=== PATIENT | male | born 1955 | race Hispanic/Latino ===

== ENCOUNTER 2024-09-11 23:08 | Emergency (ER) | payer OTHER, MEDICARE ==
[~2024-09-11] VITALS: Ht 175.3 cm; Wt 104.3 kg
[2024-09-12 01:15] VITALS: TEMP 97
[2024-09-12] MEDS ORDERED: ATOR80TA59 PO (01:17)
[2024-09-12] MEDS ORDERED: CYANCRY6 XX (01:21)
[2024-09-12] MEDS ORDERED: VITA200012 PO (01:21)
[2024-09-12] MEDS ORDERED: JARD1TAB3 PO (01:21)
[2024-09-12] MEDS ORDERED: HYDR-4514 PO (01:23)
[2024-09-12] MEDS ORDERED: METF-877 PO (01:23)
[2024-09-12] MEDS ORDERED: NARC1SPR (01:23)
[2024-09-12] MEDS ORDERED: LISI20TA33 PO (01:23)
[2024-09-12] MEDS ORDERED: FERR32TA PO (01:23)
[2024-09-12 01:42] VITALS: BP 132/59; O2SAT 96
== END 2024-09-12 01:45 | disposition short-term general hospital (02) ==
LOC: M ED 23:08
DX: S00.03XA Contusion of scalp, initial encounter (principal); I67.82 Cerebral ischemia; W01.198A Fall on same level from slipping, tripping and stumbling with subsequent striking against other object, initial encounter; I10 Essential (primary) hypertension; N40.0 Benign prostatic hyperplasia without lower urinary tract symptoms; M25.78 Osteophyte, vertebrae; M47.9 Spondylosis, unspecified; E11.9 Type 2 diabetes mellitus without complications; Z79.02 Long term (current) use of antithrombotics/antiplatelets; Z79.811 Long term (current) use of aromatase inhibitors; Z79.899 Other long term (current) drug therapy; Y92.009 Unspecified place in unspecified non-institutional (private) residence as the place of occurrence of the external cause; Y93.K1 Activity, walking an animal; Y99.9 Unspecified external cause status